=== PATIENT | female | born 1950 | race Caucasian/White ===

== ENCOUNTER 2017-02-03 14:14 | Emergency (ER) | payer OTHER, MEDICARE, BC ==
[2017-02-03 14:40] VITALS: BP 144/74; PULSE 81; RESP 20; TEMP 98.9; O2SAT 98
== END 2017-02-03 15:34 | disposition home or self-care (01) | DRG 563 ==
LOC: ED 14:14
DX: S93.422A Sprain of deltoid ligament of left ankle, initial encounter (principal); S92.022A Displaced fracture of anterior process of left calcaneus, initial encounter for closed fracture; X50.1XXA Overexertion from prolonged static or awkward postures, initial encounter
CPT/HCPCS: 73610; 99282